=== PATIENT | female | born 1990 | race Caucasian/White ===

== ENCOUNTER 2020-11-30 03:40 | Emergency (ER) | payer OTHER, SELFPAY ==
[2020-11-30 03:47] VITALS: BP 113/81; PULSE 80; RESP 16; TEMP 36.7; O2SAT 98; BMI 19.9
--- NOTE | 2020-11-30 04:05 | CTR_ITS ---
PROCEDURE INFORMATION: Exam: CT Head Without Contrast Exam date and time: 11/30/2020 4:11 AM Age: 30 years old Clinical indication: Syncope and collapse; Patient HX: Syncope just prior to arrival. TECHNIQUE: Imaging protocol: Computed tomography of the head without contrast. Radiation optimization: All CT scans at this facility use at least one of these dose optimization techniques: automated exposure control; mA and/or kV adjustment per patient size (includes targeted exams where dose is matched to clinical indication); or iterative reconstruction. COMPARISON: No relevant prior studies available. RADIATION DOSE METRICS: Total DLP (mGy-cm): 740.34 FINDINGS: Brain: No acute infarct or hemorrhage. Cerebral ventricles: No ventriculomegaly. Bones/joints: No calvarial or skull base fracture. Paranasal sinuses: Paranasal sinuses are clear. No air-fluid level. Mastoid air cells: Visualized mastoid air cells are clear. Soft tissues: Unremarkable. CT/CT head wo con* [id number] IMPRESSION: 1. No calvarial or skull base fracture. 2. No acute infarct or hemorrhage. Radiation Dose CTDIVOL = (mGy): DLP = 740.34 (mGy-cm)
--- NOTE | 2020-11-30 04:05 | W.ED.SYNCOPE ---
HPI - Syncope General: Chief Complaint: Syncope Stated Complaint: passed out/left leg numbness Time Seen by Provider: 11/30/20 03:42 Source: patient Mode of arrival: ambulatory Limitations: no limitations History of Present Illness: HPI narrative: 30-year-old female states she been sitting for a long time when she got up she felt like her leg was asleep and numb. She had her dog outside started stomping her foot and states she started to feel lightheaded got very nauseous and diaphoretic and passed out. She states she had passed out for seconds and then awoke and still had some nausea and then started to feel better. States she is feels back to her normal self this time. She states she is had near syncopal events before but not quite like this. She denies any headache today states she did have a headache yesterday. She denies any chest pain or vomiting. Associated symptoms: Deny abdominal pain, chest pain, fever(s), headache(s) or nausea Review of Systems Const: Denies: fever(s), chills, body aches or change in appetite Eyes: Denies: blurry vision or eye discomfort ENMT: Denies: throat pain or dental pain Card: Reports: syncope; Denies: chest pain Resp: Denies: dyspnea GI: Denies: abdominal pain, nausea, vomiting or diarrhea : Denies: dysuria Musc: Denies: neck pain or back pain Skin/Breast: Denies: rash Neuro: Denies: headache(s) Psych: Denies: depression Anirudh/Lymph: Denies: easy bruising All/Imm: Denies: urticaria Physical Exam Const: COMMON NORMALS: no acute distress, patient oriented x3 and healthy appearing HENMT: COMMON NORMALS: normocephalic and atraumatic HEAD & SCALP: normocephalic and atraumatic Eye: COMMON NORMALS: Equal, round and reactive pupils present and EOMs intact bilaterally PUPIL: Yes Equal, round and reactive pupils present Neck/C-Spine: COMMON NORMALS: full ROM and supple Chest: COMMONS NORMALS: normal inspection of the chest and normal palpation of entire chest wall Resp: COMMON NORMALS: normal respiratory effort, No retractions, No use of accessory muscles and clear to auscultation bilaterally AUSCULTATION: clear to auscultation bilaterally Cardio: COMMON NORMALS: regular rate, regular rhythm and No murmurs present (Cardio) RATE: regular rate RHYTHM: regular rhythm GI: COMMON NORMALS: Normal to inspection, nondistended, normoactive bowel sounds present, Soft to palpation, non-tender and no masses PALPATION: Yes Soft to palpation Extremity: COMMON NORMALS: normal to inspection and full ROM Neuro: COMMON NORMALS: patient oriented x3, moves all extremities and no focal motor deficits Psych: COMMON NORMALS: mental status grossly normal, Normal thought process present and cooperative THOUGHT PROCESS: Normal thought process present Skin: COMMON NORMALS: no rashes or lesions noted and no wounds GENERAL SKIN EXAM: no rashes or lesions noted Course Vital Signs: Vital signs: Vital Signs Temperature 98.0 F 11/30/20 03:47 Pulse Rate 77 11/30/20 04:08 Respiratory Rate 17 11/30/20 04:08 Blood Pressure 107/70 11/30/20 04:55 Pulse Oximetry 99 11/30/20 04:55 MDM - Syncope MDM Narrative: Medical decision making narrative: Patient presents here with syncopal event is likely a vasovagal event. She is well-appearing here and blood work EKG and CT head are all normal. She has no signs of pulmonary embolism. She is stable for discharge is to follow-up with primary care doctor in 2 to 4 days return to ER if worsening. Lab Data: Labs: Lab Results 11/30/20 11/30/20 11/30/20 Range/Units 04:30 04:30 04:33 WBC 7.2 (4.0-10.0) 10^3/ uL RBC 4.79 (4.1-5.3) 10^6/u L Hgb 14.3 (11.5-15.3) g/dL Hct 43.0 (37.0-47.0) % MCV 89.8 (81-99) fL MCH 29.9 (28.0-34.0) pg MCHC 33.3 (30.0-36.0) g/dL RDW 12.0 L (12.1-15.1) % Plt Count 142 (130-400) 10^3/c mm MPV 13.1 H (7.4-10.4) fL Neut % (Auto) 53.3 % Lymph % (Auto) 37.4 % [place] % (Auto) 5.4 % Eos % (Auto) 3.2 % Baso % (Auto) 0.6 % Neut # (Auto) 3.84 (1.8-7.7) 10^3/u L Lymph # (Auto) 2.7 (0.8-4.8) 10^3/u L [place] # (Auto) 0.4 (0.2-0.9) 10^3/u L Eos # (Auto) 0.2 (0.0-0.8) 10^3/u L Baso # (Auto) 0.0 (0.0-0.1) 10^3/u L Nucleated RBC % (a uto) 0 % Nucleated RBCs # 0.0 /100WBC Sodium 137 (136-145) mmol/L Potassium 4.2 (3.5-5.1) mmol/L Chloride 102 (98-107) mmol/L Carbon Dioxide 24 (22-29) mmol/L Anion Gap 15.2 (5-19) BUN 10 (6-20) mg/dL Creatinine 0.8 (0.5-0.9) mg/dL GFR Calculation 85.4 L (90-130) mL/min Glucose 99 (65-115) mg/dL Calculated Osmolal ity 283 L (285-295) mOsm/k g Calcium 9.4 (8.5-10.5) mg/dL HCG, Qual Negative (Negative) Imaging Data^: CT Head: Attestation: I personally reviewed and interpreted this imaging study as follows: Radiologist's impression: no acute abnormality EKG Data^: EKG 1: Attestation: I personally reviewed and interpreted this EKG as follows: EKG interpretation date: 11/30/20 EKG interpretation time: 04:02 Interpretation: nsr hr [address] or t wave abnormalities qrs 94 qtc 417 Discharge Plan Discharge Patient Disposition: Home Clinical Impression: Syncope Qualifiers: Syncope type: unspecified Qualified Code(s): R55 - Syncope and collapse Condition: Stable Discharge Orders: Discharge ED (Routine); Ordered 11/30/20 Ordered By: Debra Beal Referrals: Aleja Nguyen FNP [Primary Care Provider] - 1-3 days Discharge Diet: Advance as tolerated Discharge Activity: Resume usual activity Patient Instructions: Syncope (ED) Coding Level of Care Code ED Acetylene Torch Operator for Chg Fwd Exam Comprehensive
[2020-11-30 04:08] VITALS: BP 114/75; PULSE 77; RESP 17; O2SAT 100
[2020-11-30] MEDS: sodium chloride 0.9% 1,000 ML 999 ML IV (04:18)
[2020-11-30 04:43] LABS: Basophils % 0.6 %; Eosinophils # 0.2 10^3/uL (0.0-0.8); Eosinophils % 3.2 %; Hemoglobin 14.3 g/dL (11.5-15.3); Lymphocytes # 2.7 10^3/uL (0.8-4.8); Lymphocytes % 37.4 %; Mean Corpuscular HGB Conc 33.3 g/dL (30.0-36.0); Mean Corpuscular Hemoglobin 29.9 pg (28.0-34.0); Mean Corpuscular Volume 89.8 fL (81-99); Mean Platelet Volume 13.1 fL (7.4-10.4); Monocytes # 0.4 10^3/uL (0.2-0.9); Monocytes % 5.4 %; Neutrophils # 3.84 10^3/uL (1.8-7.7); Neutrophils % 53.3 %; Nucleated Red Blood Cells % 0 %; Platelet Count 142 10^3/cmm (130-400); Red Blood Count 4.79 10^6/uL (4.1-5.3); White Blood Count 7.2 10^3/uL (4.0-10.0)
[2020-11-30 04:55] VITALS: BP 107/70; O2SAT 99
[2020-11-30 04:55] LABS: Anion Gap 15.2 (5-19); Blood Urea Nitrogen 10 mg/dL (6-20); Calcium 9.4 mg/dL (8.5-10.5); Carbon Dioxide 24 mmol/L (22-29); Chloride 102 mmol/L (98-107); Glomerular Filtration Rate 85.4 mL/min (90-130); Glucose 99 mg/dL (65-115); Osmolality Calculated 283 mOsm/kg (285-295); Potassium 4.2 mmol/L (3.5-5.1); Sodium 137 mmol/L (136-145)
[2020-11-30 05:03] LABS: HCG, Serum Qual Negative (Negative)
[2020-11-30 05:24] VITALS: BP 105/66; PULSE 64; RESP 18; O2SAT 98
--- NOTE | 2020-11-30 06:24 | ECG_ITS ---
[facility] Test Date: 2020-11-30 Pat Name: Pilar Hilario Department: Room: Gender: Female Ripper Operator: : 1990 Requested By: Debra Beal Order Number: [id number] Tena MD: Aracely Pang M.D. Measurements Intervals [place] Rate: 75 P: 59 [place]: 151 QRS: 12 QRSD: 94 T: 35 QT: 389 QTc: 435 Interpretive Statements SINUS RHYTHM INTERPRETATION BASED ON A DEFAULT AGE OF 40 YEARS No previous ECG available for comparison Electronically Signed On 11-30-2020 23:45:31 CDT by Aracely Pang M.D. [id number]
== END 2020-11-30 05:25 | disposition home or self-care (01) ==
PROVIDERS: Emergency Provider Emergency Medicine; PCP Registered Nurse
DX: R55 Syncope and collapse (principal)
CPT/HCPCS: 70450; 80048; 84703; 85025; 93005; 96360; 99283; J7030

== ENCOUNTER 2021-05-29 17:40 | Outpatient (CLI) | payer OTHER, SELFPAY ==
[2021-05-29 18:42] LABS: Specific Gravity, Urine 1.005 (1.005-1.030); Urine Appearance Clear (CLEAR); Urine Color Yellow (Yellow); pH Urine 7 (5-7)
[2021-05-29 18:43] LABS: Add Urine Microscopic? YES; Bilirubin Urine Neg (Negative); Blood Urine 3+ (Negative); Glucose Urine UA Norm (Normal); Ketones Urine Negative (Negative); Leukocyte Esterase Urine 1+ (Negative); Nitrate Urine Negative (Negative); Protein Urine Neg (Negative); Squamous Epithelial Cell Urine 0-4 /hpf (0-5); Urobilinogen Urine Norm (Negative)
[2021-05-29 18:44] LABS: Add Urine Culture? No; Bacteria Urine TRACE /hpf
== END 2021-05-29 17:41 | disposition home or self-care (01) ==
PROVIDERS: Visit Provider Registered Nurse
DX: N30.01 Acute cystitis with hematuria (principal)
CPT/HCPCS: 81001